=== PATIENT | female | born 1975 | race Caucasian/White ===

== ENCOUNTER 2019-08-29 07:20 | Day surgery (SDC) | payer BC ==
[2019-08-15 10:48] LABS: HEMOGLOBIN 13.2 g/dL (12.0-15.5); MEAN CORPUSCULAR HEMOGLOBIN 28.4 pg (27.0-33.4); MEAN CORPUSCULAR HGB CONC 33.8 g/dL (32.0-36.0); MEAN CORPUSCULAR VOLUME 84 fl (80-97); PLATELET COUNT 264 10^3/uL (150-450); RED BLOOD COUNT 4.63 10^6/uL (3.72-5.28); RED CELL DISTRIBUTION WIDTH 15.3 % (11.5-14.0); WHITE BLOOD COUNT 8.8 10^3/uL (4.0-10.5)
[2019-08-15 11:04] LABS: APPEARANCE,URINE CLEAR; BILIRUBIN,URINE NEGATIVE (NEGATIVE); COLOR,URINE YELLOW; GLUCOSE, URINE NEGATIVE (NEGATIVE); KETONES,URINE NEGATIVE (NEGATIVE); LEUKOCYTE ESTERASE,URINE NEGATIVE (NEGATIVE); NITRITE,URINE NEGATIVE (NEGATIVE); PROTEIN,URINE NEGATIVE (NEGATIVE); URINE SPECIFIC GRAVITY 1.009; UROBILINOGEN,URINE NEGATIVE mg/dL (<2.0)
[~2019-08-29 07:20] MED LIST: FENTANYL CITRATE INJ/PF 100 MCG/2 ML AMPUL ONE; KETAMINE HCL INJ 500 MG/10 ML VIAL ONE; MIDAZOLAM 2 MG/2 ML INJ ONE; ONDANSETRON HCL INJ/PF 4 MG/2 ML SDV ONE; PROPOFOL INJ 200 MG/20 ML VIAL IV ONE
[2019-08-29] MEDS ORDERED: FENTANYL CITRATE INJ/PF 100 MCG/2 ML AMPUL IV PRN ×3 (09:52)
[2019-08-29] MEDS ORDERED: MEPERIDINE HCL/PF INJ 25 MG/1 ML DISP.SYRIN IV PRN (09:52)
[2019-08-29] MEDS ORDERED: PROMETHAZINE HCL INJ 25 MG/1 ML VIAL IV PRN ×2 (09:52)
[2019-08-29] MEDS ORDERED: ONDANSETRON HCL INJ/PF 4 MG/2 ML SDV IV PRN (09:52)
[2019-08-29] MEDS ORDERED: DIPHENHYDRAMINE HCL 50 MG/ML VIAL IV PRN (09:52)
[2019-08-29] MEDS ORDERED: MORPHINE SULFATE 10 MG/ML INJ IV PRN (09:52)
[2019-08-29] MEDS ORDERED: KETOROLAC TROMETHAMINE INJ/PF 30 MG/1 ML SDV IV PRN (10:06)
[2019-08-29] MEDS ORDERED: RINGERS SOLUTION,LACTATED 1,000 ML IV PRN (10:06)
[2019-08-29] MEDS ORDERED: OXYCODONE-ACETAMINOPHEN 5-325 MG TABLET PO PRN ×2 (10:06)
[2019-08-29] MEDS ORDERED: IBUPROFEN 800 MG TABLET PO PRN (10:06)
--- NOTE | 2019-08-29 10:09 | Operative Report ---
Operative Report DATE OF SURGERY: 08/29/19 PREOPERATIVE DIAGNOSIS: Patient describes heavy menses POSTOPERATIVE DIAGNOSIS: Same OPERATION: D&C hysteroscopy and NovaSure ablation SURGEON: PIERRE YOUNG ANESTHESIA: GA TISSUE REMOVED OR ALTERED: Uterine contents ESTIMATED BLOOD LOSS: None INTRAOPERATIVE FINDINGS: Uterine cavity is 5 cm in length and 4.2 cm in width PROCEDURE: Patient was taken the OR and placed in supine position. Anesthesia was induced. She was placed in dorsolithotomy position using Anibal stirrups. Her perineum and vagina were prepared and draped in sterile fashion. She had previously voided and did not need catheterization. Speculum was placed in the vagina and the anterior lip cervix grasped with attached tenaculum. Uterus was sounded to 8 cm before and after the case. Cervix was gently dilated. Endocervical curettings were obtained. Hysteroscope was inserted and the uterine cavity viewed. There were no fibroids or polyps in the uterine cavity. The hysteroscope was removed and the uterus was measured to 5 cm with a NovaSure measuring device. Endometrial curettings were obtained. The NovaSure ablation device was placed tested and fired. The with was 4.2 cm. There were no complications. After the completion of the ablation repeat hysteroscopy showed a well ablated uterine cavity. All instruments were removed patient was placed back in supine position taken recovery in stable condition.
--- NOTE | 2019-08-29 10:15 | Discharge Summary ---
Discharge Summary (SDC) - Discharge Final Diagnosis: Heavy menses Date of Surgery: 08/29/19 Discharge Date: 08/29/19 Condition: Good Treatment or Instructions: Home to rest pelvic rest for 2 weeks. Follow-up in 2 weeks in the office. Prescriptions: Oxycodone HCl/Acetaminophen [Percocet 5-325 mg Tablet] 1 tab PO Q4HP PRN #20 tablet PRN Reason: Ibuprofen [Motrin 800 mg Tablet] 800 mg PO Q8H PRN #30 tablet PRN Reason: Referrals: DONA GARCES PA-C [Primary Care Provider] - Discharge Diet: Regular Discharge Activity: Activity As Tolerated, Pelvic Rest Home Care Assistance: None Needed
[2019-08-29] MEDS ORDERED: KETOROLAC TROMETHAMINE INJ/PF 30 MG/1 ML SDV ONE (10:33)
[2019-08-29] MEDS ORDERED: FENTANYL CITRATE INJ/PF 100 MCG/2 ML AMPUL ONE (10:33)
[2019-08-29] MEDS ORDERED: SUCCINYLCHOLINE CHLORIDE INJ 200 MG/10 ML VIAL ONE (11:14)
[2019-08-29 12:10] VITALS: BP 137/80
== END 2019-08-29 12:05 | disposition home or self-care (01) ==
LOC: OROUT 07:20
PROVIDERS: ATTEND Obstetrics & Gynecology
DX: N93.9 Abnormal uterine and vaginal bleeding, unspecified (principal); N92.0 Excessive and frequent menstruation with regular cycle; N84.0 Polyp of corpus uteri; D25.9 Leiomyoma of uterus, unspecified; E11.9 Type 2 diabetes mellitus without complications; F17.210 Nicotine dependence, cigarettes, uncomplicated; E66.9 Obesity, unspecified; Z68.41 Body mass index [BMI] 40.0-44.9, adult
CPT/HCPCS: 58563; 36415; 85027; 81025; 81001; 88305 ×2; 00952; J2250; J3010; J1885; J0330; J2405; J2704; 952; J3490